=== PATIENT | female | born 1980 | race Caucasian/White ===

== ENCOUNTER 2016-10-30 00:40 | Emergency (ER) | payer SELFPAY ==
[~2016-10-30] VITALS: Ht 165.1 cm; Wt 75.0 kg
[2016-10-30] MEDS ORDERED: IBUPROFEN 600MG TABLET PO ONE (06:30)
[2016-10-30 09:43] VITALS: BP 132/84
== END 2016-10-30 10:31 | disposition home or self-care (01) ==
LOC: ER 01:48
DX: S93.601A Unspecified sprain of right foot, initial encounter (principal); S93.602A Unspecified sprain of left foot, initial encounter; S80.11XA Contusion of right lower leg, initial encounter; W22.8XXA Striking against or struck by other objects, initial encounter; W01.198A Fall on same level from slipping, tripping and stumbling with subsequent striking against other object, initial encounter; Y93.89 Activity, other specified; Y92.89 Other specified places as the place of occurrence of the external cause; Y99.8 Other external cause status
CPT/HCPCS: 73562; 73630; 81025; 99284